=== PATIENT | male | born 1945 | race Caucasian/White ===

== ENCOUNTER → 2019-11-21 10:15 | Outpatient (BNVA) | payer MEDICARE, SELFPAY | PROVIDERS: Family Provider Family Medicine; PCP Family Medicine; Visit Provider Family Medicine | DX: E11.40 Type 2 diabetes mellitus with diabetic neuropathy, unspecified (principal) | CPT/HCPCS: 82607; 83036; 85025 ==

== ENCOUNTER → 2020-01-13 15:23 | Outpatient (BNVA) | payer MEDICARE, SELFPAY | PROVIDERS: Family Provider Family Medicine; PCP Family Medicine; Visit Provider Family Medicine | DX: E11.9 Type 2 diabetes mellitus without complications (principal) | CPT/HCPCS: 36416; 83036 ==

== ENCOUNTER 2020-08-13 14:33 | Outpatient (CLI) | payer MEDICARE, SELFPAY ==
--- NOTE | 2020-08-13 15:12 | XR_ITS ---
WS: [id number] Exam: XR lumbar spine 2-3V* [id number] Date/Time of Exam: 08/13/2020 3:12 PM Reason For Exam: pain No acute fracture or dislocation. There is spondylosis. Degenerative vacuum disks noted at L4-5 and L 5-S1. Facet DJD at all levels. DJD of the SI joints. Osteopenia. XR/XR lumbar spine 2-3V* [id number] IMPRESSION: 1. No fracture or malalignment. 2. Degenerative changes as above.
== END 2020-08-13 14:34 | disposition home or self-care (01) ==
LOC: RAD 14:37
PROVIDERS: Family Provider Family Medicine; PCP Family Medicine; Visit Provider Family Medicine
DX: M54.5 Low back pain (principal)
CPT/HCPCS: 72100

== ENCOUNTER 2020-08-28 12:51 | Outpatient (CLI) | payer MEDICARE, SELFPAY ==
--- NOTE | 2020-08-28 13:09 | MR_ITS ---
WS: [id number] MRI LUMBAR SPINE WITH CONTRAST TECHNIQUE: Sagittal T1, T2 and STIR imaging. Axial T1 and T2 imaging. Post gadolinium imaging was obt ained. CLINICAL INFORMATION: back pain COMPARISON: MRI FINDINGS: Mild lumbar curve. No acute compression. No high-grade stenosis stenosis. Right L4-5 hemilaminectomy appears new from previous. New prominent L3-4 central disc herniation. L1-L2: Normal. L2-L3: No significant disc bulging. Mild facet arthropathy. Spinal canal and foramen are patent. L3-L4: Mild disc bulging with a prominent central disc protrusion is new from previous. Moderate cent ral canal stenosis. Impingement on the traversing L4 nerve roots bilaterally. Mild left and no signif icant right foraminal narrowing. Moderate facet arthropathy. L4-L5: Right L4-5 hemilaminectomy appears new from previous. Mild disc osteophyte ridging with slight effacement of ventral thecal sac. Slight impingement traversing right L5 nerve root. Mild right and no significant left foraminal narrowing. Moderate facet arthropathy ligamentum flavum hypertrophy. L5-S1: Mild disc bulging with osteophytic ridging. Slight effacement of ventral thecal sac. Moderate to severe right and mild left foraminal narrowing. Encroachment traversing S1 nerve roots without sig nificant impingement. Visualized pelvic bony structures: Normal. Paravertebral soft tissues: Normal. Prior postoperative changes anterior cervical fusion C5-C7. MR/MR lumbar spine wo/w con [id number] IMPRESSION: 1. Mild lumbar curve. No acute compression. 2. New prominent central disc protrusion L3-4 with moderate central canal sten osis and impingement traversing L4 nerve roots bilaterally. 3. Right eccentric disc osteophyte complex L5-S1 with moderate to severe right L5-S1 foraminal narrowing. 4. Right L4-5 laminectomy appears new from previous. Residual narrowing of the right L4-5 subarticular recess with disc osteophytic ridging. Mild right L4-5 foraminal narrowing. 5. Moderate facet arthropathy L3-L5.
== END 2020-08-28 12:52 | disposition home or self-care (01) ==
LOC: RADSHAW 13:01
PROVIDERS: PCP Family Medicine; Visit Provider Family Medicine
DX: M47.816 Spondylosis without myelopathy or radiculopathy, lumbar region (principal); M96.1 Postlaminectomy syndrome, not elsewhere classified; M25.78 Osteophyte, vertebrae; M51.26 Other intervertebral disc displacement, lumbar region
CPT/HCPCS: 72158; A9579

== ENCOUNTER → 2020-11-16 10:54 | Outpatient (BNVA) | payer MEDICARE, SELFPAY | PROVIDERS: PCP Family Medicine; Referring Provider Orthopaedic Surgery; Visit Provider Anesthesiology Pain Medicine | DX: M54.9 Dorsalgia, unspecified (principal); M54.16 Radiculopathy, lumbar region; M51.36 Other intervertebral disc degeneration, lumbar region | CPT/HCPCS: 99205 ==

== ENCOUNTER → 2020-11-20 14:00 | Outpatient (BNVA) | payer MEDICARE, SELFPAY | PROVIDERS: PCP Family Medicine; Visit Provider Nurse Practitioner Family | DX: R50.9 Fever, unspecified (principal); R19.7 Diarrhea, unspecified | CPT/HCPCS: 87635 ==

== ENCOUNTER → 2020-12-07 12:44 | Outpatient (BNVA) | payer MEDICARE, SELFPAY | PROVIDERS: PCP Family Medicine; Visit Provider Anesthesiology Pain Medicine | DX: M54.16 Radiculopathy, lumbar region (principal); M54.9 Dorsalgia, unspecified | CPT/HCPCS: 64483; 64484; J1100; J3490 ==

== ENCOUNTER → 2020-12-28 13:29 | Outpatient (BNVA) | payer MEDICARE, SELFPAY | PROVIDERS: PCP Family Medicine; Visit Provider Anesthesiology Pain Medicine | DX: M54.9 Dorsalgia, unspecified (principal); M54.16 Radiculopathy, lumbar region; M51.36 Other intervertebral disc degeneration, lumbar region | CPT/HCPCS: 99214 ==

== ENCOUNTER → 2021-01-07 12:36 | Outpatient (BNVA) | payer MEDICARE, SELFPAY | PROVIDERS: PCP Family Medicine; Visit Provider Anesthesiology Pain Medicine | DX: M54.16 Radiculopathy, lumbar region (principal); M54.9 Dorsalgia, unspecified | CPT/HCPCS: 64483; 64484; J1040; J3490 ==

== ENCOUNTER → 2021-01-21 10:33 | Outpatient (BNVA) | payer MEDICARE, SELFPAY | PROVIDERS: PCP Family Medicine; Visit Provider Anesthesiology Pain Medicine | DX: M79.18 Myalgia, other site (principal); M54.9 Dorsalgia, unspecified; M54.16 Radiculopathy, lumbar region; M51.36 Other intervertebral disc degeneration, lumbar region | CPT/HCPCS: 20553; 99214; J1030; J3490 ==

== ENCOUNTER → 2021-01-29 12:41 | Outpatient (BNVA) | payer MEDICARE, SELFPAY | PROVIDERS: PCP Family Medicine; Visit Provider Anesthesiology Pain Medicine | DX: M79.18 Myalgia, other site (principal); M54.9 Dorsalgia, unspecified | CPT/HCPCS: 20553; J1030; J3490 ==

== ENCOUNTER → 2021-02-18 10:36 | Outpatient (BNVA) | payer MEDICARE, SELFPAY | PROVIDERS: PCP Family Medicine; Visit Provider Anesthesiology Pain Medicine | DX: M54.9 Dorsalgia, unspecified (principal); M54.16 Radiculopathy, lumbar region; M51.36 Other intervertebral disc degeneration, lumbar region | CPT/HCPCS: 99214 ==

== ENCOUNTER → 2021-02-25 13:50 | Outpatient (BNVA) | payer MEDICARE, SELFPAY | PROVIDERS: PCP Family Medicine; Visit Provider Anesthesiology Pain Medicine | DX: M47.816 Spondylosis without myelopathy or radiculopathy, lumbar region (principal); M54.9 Dorsalgia, unspecified | CPT/HCPCS: 64493; 64494; 64495; J3490 ==

== ENCOUNTER → 2021-03-15 10:50 | Outpatient (BNVA) | payer MEDICARE, SELFPAY | PROVIDERS: PCP Family Medicine; Visit Provider Anesthesiology Pain Medicine | DX: M54.9 Dorsalgia, unspecified (principal); M54.16 Radiculopathy, lumbar region; M51.36 Other intervertebral disc degeneration, lumbar region; M79.604 Pain in right leg; M79.605 Pain in left leg; Z87.891 Personal history of nicotine dependence | CPT/HCPCS: 99214 ==

== ENCOUNTER → 2021-03-26 14:24 | Outpatient (BNVA) | payer MEDICARE, SELFPAY | PROVIDERS: PCP Family Medicine; Visit Provider Anesthesiology Pain Medicine | DX: M47.816 Spondylosis without myelopathy or radiculopathy, lumbar region (principal); M54.9 Dorsalgia, unspecified | CPT/HCPCS: 64493; 64494; 64495; J3490 ==

== ENCOUNTER → 2021-04-11 09:35 | Outpatient (BNVA) | payer OTHER, SELFPAY | PROVIDERS: PCP Family Medicine; Visit Provider Anesthesiology Pain Medicine | DX: M54.9 Dorsalgia, unspecified (principal); M54.16 Radiculopathy, lumbar region; M51.36 Other intervertebral disc degeneration, lumbar region; Z87.891 Personal history of nicotine dependence | CPT/HCPCS: 99214 ==

== ENCOUNTER → 2021-04-15 13:33 | Outpatient (BNVA) | payer OTHER, SELFPAY | PROVIDERS: PCP Family Medicine; Visit Provider Anesthesiology Pain Medicine | DX: M47.816 Spondylosis without myelopathy or radiculopathy, lumbar region (principal); M54.9 Dorsalgia, unspecified | CPT/HCPCS: 64635; 64636; J1030 ==

== ENCOUNTER → 2021-04-29 13:49 | Outpatient (BNVA) | payer OTHER, SELFPAY | PROVIDERS: PCP Family Medicine; Visit Provider Anesthesiology Pain Medicine | DX: M47.816 Spondylosis without myelopathy or radiculopathy, lumbar region (principal); M54.9 Dorsalgia, unspecified; Z87.891 Personal history of nicotine dependence | CPT/HCPCS: 64635; 64636; J1030 ==

== ENCOUNTER → 2021-05-14 14:46 | Outpatient (BNVA) | payer OTHER, SELFPAY | PROVIDERS: PCP Family Medicine; Visit Provider Anesthesiology Pain Medicine | DX: M54.16 Radiculopathy, lumbar region (principal) | CPT/HCPCS: 64483; 64484; J1100; J3490 ==

== ENCOUNTER → 2021-05-29 14:01 | Outpatient (BNVA) | payer OTHER, SELFPAY | PROVIDERS: PCP Family Medicine; Visit Provider Anesthesiology Pain Medicine | DX: M54.16 Radiculopathy, lumbar region (principal); M51.36 Other intervertebral disc degeneration, lumbar region; M79.604 Pain in right leg; M79.605 Pain in left leg | CPT/HCPCS: 99214 ==

== ENCOUNTER → 2021-06-28 11:06 | Outpatient (BNVA) | payer OTHER, SELFPAY | PROVIDERS: PCP Family Medicine; Visit Provider Anesthesiology Pain Medicine | DX: M54.16 Radiculopathy, lumbar region (principal); M51.36 Other intervertebral disc degeneration, lumbar region; M79.604 Pain in right leg; M79.605 Pain in left leg | CPT/HCPCS: 99213 ==

== ENCOUNTER → 2021-07-22 10:03 | Outpatient (BNVA) | payer OTHER, SELFPAY | PROVIDERS: PCP Family Medicine; Visit Provider Orthopaedic Surgery | DX: Z01.818 Encounter for other preprocedural examination (principal); Z20.822 Contact with and (suspected) exposure to COVID-19 | CPT/HCPCS: 87635 ==

== ENCOUNTER 2021-07-26 07:10 | Day surgery (SDC) | payer OTHER, SELFPAY ==
[2021-07-25 15:45] VITALS: BMI 36.2
[2021-07-26] VITALS (7 sets, daily range): BP systolic 104–121; BP diastolic 61–84; PULSE 81–98; RESP 15–18; TEMP 36.2–36.5; O2SAT 90–96
--- NOTE | 2021-07-26 | SCC_ITS ---
Procedure Done: 1. L4/5 laminectomy with partail facetectomy 2. L5/S1 laminectomy with partial facetectomy 22.6 seconds of fluoroscopic guidance, for a cumulative dose of 11.53 mGy, was provided to Dr. Alvares by the radiology department. C-arm images of the lumbar spine were saved for the patient's permanent record. [facility]
--- NOTE | 2021-07-26 | XR_ITS ---
WS: [id number] C-ARM RADIOGRAPHS LUMBAR SPINE; 3 IMAGES HISTORY: MAG PICS COMPARISON: None available. Intraoperative imaging during decompression. Hardware is noted at the L4-5 disc level. XR/XR lumbar spine 1V port [id number] IMPRESSION: Intraoperative imaging during spine decompression.
[2021-07-26] MEDS: sodium chloride 0.9% 1,000 ML 30 ML IV (07:39)
--- NOTE | 2021-07-26 07:57 | ANES.PREANE2 ---
Pre-Anesthetic Assessment Pre-Anesthetic Assessment: Height/Weight: Height 1.8 m Weight 117.934 kg Temp Pulse Resp BP Pulse Ox 97.2 F L 83 17 112/66 94 07/26/21 07:26 07/26/21 07:26 07/26/21 07:26 07/26/21 07:26 07/26/21 07:26 Preop Diagnosis: lumbar stenosis with neurogenic claudication Proposed Procedure: Operation Date: 07/26/21 08:40 Proposed Procedures p Lumbar Spine Decompression L4/5 L5/S1 [id number] M48.061(Not Applicable) - Dillon Alvares, DO Was Beta Lupis taken within 24 hours: N/A Was Clonidine taken within 24 hours: N/A Last intake: Intake Last Liquid Date 07/25/21 Last Liquid Time 18:05 Last Solid Date 07/25/21 Last Solid Time 18:05 Social: Social History: Alcohol (nightly) and Tobacco Exam: Pre-Anes Outpt Exam: alert, oriented x 3 and clear to auscultation bilaterally Airway: Cervical ROM: WNL MP: 3 Dentition: Partials (lower) CV/HEM: CV/HEM: Arrythmia and HTN Metabolic: Metabolic: Morbid obesity Musc/skel: Musc/skel: Lower Back Pain and OA/DJD Anesthetic Plan: ASA status: 3 Anesthesia: General Risk of > 500 ml blood loss (7ml/kg in children): No Meds/Allergies Current Medications: Current Medications Generic Name Dose Route Start Last Admin Trade Name Freq PRN Reason Stop Dose Admin Sodium Chloride 1,000 mls @ 30 ml s/hr 07/26/21 07:30 07/26/21 07:39 Sodium Chloride 0.9% IV 07/27/21 07:29 30 mls/hr .Q24H KORINA Administration PFSH Anesthesia PFSH: Social History Second hand smoke exposure: No Alcohol intake: current Alcohol intake frequency: 3 or more drinks per day History of recent travel: No Data Anesthesia Cardiac Studies: No Data to Display
--- NOTE | 2021-07-26 09:23 | PM.HP ---
Providers/Chief Complaint Primary Care Provider: Mckinley Alcocer MD Chief Complaint: lumbar decompression History of Present Illness Miller Chowdary is a 76 year old male Chief Complaint: low back pain Onset:January Duration: months Characteristics: ache, sharp stabbing, pinch Severity: 5/10 Location: low back Radiating symptoms: none Aggravating factors: twisting, bending, standing Alleviating factors:Laying, sitting provides almost instant relief. Neuro deficits: denies numbness, tingling, weakness, incontinence of bowel/bladder, saddle anesthesia. Prior tx: back surgery to L3/4/5 in [place] January, with relief, 3 injections 2009 with minimal relief Review of Systems Narrative: General ROS: negative for weight changes, fever ENT ROS: negative for nasal congestion, drainage or bleeding, sore throat, dysphagia or ear pain Eyes: PERRL Hematological and Lymphatic ROS: negative for swollen glands or abnormal bleeding Endocrine ROS: negative for polyuria/polydpsia or new changes in weight Respiratory ROS: negative for cough, shortness of breath, or wheezing Cardiovascular ROS: negative for chest pain or dyspnea on exertion Gastrointestinal ROS: negative for reflux, abdominal pain, change in bowel habits, or black or bloody stools Musculoskeletal ROS: negative for back pain, neck pain, or joint pain or swelling except for current problem Neurological ROS: negative for TIA or stoke symptoms Skin: no rashes Medications/Allergies Home Medications Medication Instructions Recorded Confirmed Last Taken Type carvedilol 12.5 mg tablet 12.5 mg PO Q12H tab 04/04/20 07/26/21 07/26/21 05:00 History omeprazole 40 mg capsule,delayed 40 mg PO DAILY PRN #90 cap 11/09/20 07/26/21 07/26/21 05:00 Rx release apixaban 5 mg tablet 5 mg PO BID #30 tab 11/12/20 07/25/21 07/23/21 Rx ezetimibe 10 mg tablet See Rx Instructions .ROUTE 03/06/21 07/26/21 07/25/21 08:00 Rx .COMPLEX #90 tab furosemide 20 mg tablet See Rx Instructions .ROUTE 03/06/21 07/26/21 07/25/21 08:00 Rx .COMPLEX #180 tab potassium chloride 20 mEq See Rx Instructions .ROUTE 03/06/21 07/26/21 07/25/21 08:00 Rx tablet,extended release(part/cryst) .COMPLEX #90 tab olmesartan 20 mg tablet 20 mg PO DAILY 06/25/21 07/26/21 07/25/21 08:00 History Allergies Allergy/AdvReac Type Severity Reaction Status Date / Time digoxin Allergy Severe ADR/ALGY-Hy Verified 07/26/21 07:24 potension PFSH Acute PFSH: Social History Second hand smoke exposure: No Alcohol intake: current Alcohol intake frequency: 3 or more drinks per day History of recent travel: No Vitals/I&O/Wt Last Vital Signs Temp 97.2 F L 07/26/21 07:26 Pulse 83 07/26/21 07:26 Resp 17 07/26/21 07:26 BP 112/66 07/26/21 07:26 Pulse Ox 94 07/26/21 07:26 Weight last 48 hrs Weight 260 lb Physical Exam Narrative: EXAM NARRATIVE: CONSTITUTIONAL: The patient is a normal appearing [] in no apparent distress. GENERAL: Patient in no acute distress. CARDIAC: Regular rate and rhythm. CHEST: Normal inspiratory effort, normal respiratory rate. ABDOMEN: Soft and nontender. SKIN: Clear, warm and intact. NEURO?PSYCH: The patient is alert and oriented to person, place and time. Sensorv /SILT Motor StrengthShoulder abduction C5 5/5Wrist extension C6 5/5Elbow extension C7 5/5Hand Office Copy Selector C8 5/5Finger abduction T15/5 Radial/ Ulnar/ Median n intact LowerSensory (SILT)Motor StrengthHin flexion L2/3Ant/inner thigh 5/5Hip adduction L2/3 5/5Knee extension L4 Lat thigh, 5/5Toe dorsiflexion L5 5/5Ankle dorsiflexion L5/ T46Kpomowo flexion S1 5/5 DTRBleeps 2+Triceps 2+Brachioradialis 2+Patellar 2+Achilles 2+ MUSCULOSKELETAL: [] UPPEREXTREMITIES: The patient had full active ROM in fingers, wrist, elbow, and shoulder. The patient demonstrated ability to fully flex/extend/abduct/adduct fingers, make ok sign, cross 2nd/3rd digits, extend 1st digit fully.. Radial pulse 2+, CR<2 seconds. LOWER EXTREMITIES: Pt has full, active ROM of toes, ankle, knee, and hip. Dorsalis pedis/posterior tibialis pulses 2+, CR<2 seconds. SPINE: Skin warm, dry, intact. A&P Assessment and plan (1) Lumbar stenosis without neurogenic claudication: MIS decompression L4/5 And L5/S1 Status: Acute Attestations Medical Necessity Statement*: failed conservative tx Coding Level of Care Code Acute Floor Covering Installer for [facility] Fwd Diagnoses Lumbar stenosis without neurogenic claudication M48.061
--- NOTE | 2021-07-26 11:01 | P.OP_ITS ---
Operative Report Date of procedure: July 26, 2021 Pre-op Diagnosis: lumbar stenosis with neurogenic claudication Post-op diagnosis: same Procedure Done: 1. L4/5 laminectomy with partail facetectomy 2. L5/S1 laminectomy with partial facetectomy Surgeon: Dillon Alvares Risk Prevention Engineer: Bobby Munguia Risk Prevention Engineer: The surgical nurse, LURDES Newman was needed for his expertise under the microscope. He was important and necessary throughout the procedure to complete in a safe and timely manner. He assisted with patient positioning prepping and draping tissue retraction suctioning of the operative field protection of the dural sac and tissue closure Anesthesia: General Estimated blood loss (mL): 10 Condition: stable Disposition: PACU Procedure: Patient is brought to the operative suite. After undergoing anesthesia they are placed in the prone position. All areas of impingement are well padded. Patient is then prepped and draped in the normal sterile fashion. A skin incision is made over the L4/5 level. This is confirmed under c-arm guidance. A series of dilators are passed and the tubular retractor is docked on the L4 lamina. A bovie is used to clear the soft tissue off the lamina and the L 4/5 facet joint. A high speed josselyn is then used to perform the laminectomy and take down the medial aspect of the L 4/5 facet joint. A kerrison rongeure was then used to take down the remaining lamina and smooth the edge of the laminectomy up to the point where the ligamentum flavum attaches. Attention was then brought to the medial aspect of the facet joint. The remaining medial aspect of the superior and inferior aspect of the facet joint were taken down with the kerrison from the pedicle of L4 to L 5. The facet joint had significant hypertrophy. Attention was then brought to the Ligamentum Flavum. The ligament was taken down from the lamina of L4 to L5 and out medially to the remaining facet joint. The ligament was thick. The dura was then exposed. The dura was in good repair. The L4 nerve was then traced with a curette out the L4/5 foramen and found to be adequately decompressed. The L5 nerve was traced with a curette around the L5 pedicle. The lateral recess was opened with a kerrison helping to further decompress the L5 nerve. Wound is then irrigated copiously with saline and surgiflo is used to stop any bleeding. The tubular retractor is removed and A skin incision is made over the L5/S1 level. This is confirmed under c-arm guidance. A series of dilators are passed and the tubular retractor is docked on the L5 lamina. A bovie is used to clear the soft tissue off the lamina and the L 5/S1 facet joint. A high speed josselyn is then used to perform the laminectomy and take down the medial aspect of the L 5/S1 facet joint. A kerrison rongeure was then used to take down the remaining lamina and smooth the edge of the laminectomy up to the point where the ligamentum flavum attaches. Attention was then brought to the medial aspect of the facet joint. The remaining medial aspect of the superior and inferior aspect of the facet joint were taken down with the kerrison from the pedicle of L5 to S1. The facet joint had significant hypertrophy. Attention was then brought to the Ligamentum Flavum. The ligament was taken down from the lamina of L5 to S1 and out medially to the remaining facet joint. The ligament was thick. The dura was then exposed. The dura was in good repair. The L5 nerve was then traced with a curette out the L5/S1 foramen and found to be adequately decompressed. The S1 nerve was traced with a curette around the S1 pedicle. The lateral recess was opened with a kerrison helping to further decompress the S1 nerve. Wound is then irrigated copiously with saline and surgiflo is used to stop any bleeding. The tubular retractor is removed and the wound is closed with vicryl and monocryl suture. Glue is then used to protect the wound. A sterile dressing is then placed. Patient was then placed in the supine position and transferred to the PACU in stable condition.
--- NOTE | 2021-07-26 11:04 | P.PCN_ITS ---
PACU note PACU note: VSS, Good respiratory effort, report to RELATIONS SPECIALIST Post-Anesthesia Exam: awake
--- NOTE | 2021-07-26 11:04 | PM.PACU ---
PACU note PACU note: VSS, Good respiratory effort, report to LAYOUT DESIGNER Post-Anesthesia Exam: awake
--- NOTE | 2021-07-26 13:21 | ANE.PACU2 ---
Inpatient post-anesthesia follow up: Airway intact: Yes Vital signs: Temperature 97.2 F Pulse Rate 83 Respiratory Rate 18 Blood Pressure 117/84 Pulse Oximetry 96 Oxygen Delivery Me thod Room Air Oxygen Flow Rate Fraction of Inspir ed Oxygen Hydration adequate: Yes Nausea and vomiting: No Pain level: 3 Mental status: Baseline
== END 2021-07-26 11:54 | disposition home or self-care (01) ==
PROVIDERS: PCP Family Medicine; Visit Provider Orthopaedic Surgery
PROC: (CPT 63005; principal; 2021-07-26 08:40)
DX: M48.062 Spinal stenosis, lumbar region with neurogenic claudication (principal); I10 Essential (primary) hypertension; E66.01 Morbid (severe) obesity due to excess calories; Z68.36 Body mass index [BMI] 36.0-36.9, adult
CPT/HCPCS: 63047; 63048; 72020; 76000; J0330; J0690; J1100; J2370; J2405; J2704; J3010; J3490; J7030

== ENCOUNTER 2021-10-23 10:06 | Outpatient (RCR) | payer OTHER, SELFPAY | END 2021-11-18 23:59 | disposition home or self-care (01) | LOC: GPT 10:06 | PROVIDERS: PCP Family Medicine; Referring Provider Orthopaedic Surgery; Visit Provider Orthopaedic Surgery | DX: Z47.89 Encounter for other orthopedic aftercare (principal) | CPT/HCPCS: 97110; 97140; 97162; G0283 ==

== ENCOUNTER 2021-11-19 06:00 | Outpatient (RCR) | payer OTHER, SELFPAY | END 2021-12-16 23:59 | disposition home or self-care (01) | LOC: GPT 06:00 | PROVIDERS: PCP Family Medicine; Referring Provider Orthopaedic Surgery; Visit Provider Orthopaedic Surgery | DX: Z47.89 Encounter for other orthopedic aftercare (principal) | CPT/HCPCS: 97110; 97140; G0283 ==

== ENCOUNTER 2021-12-17 06:00 | Outpatient (RCR) | payer OTHER, SELFPAY | END 2022-01-09 23:59 | disposition home or self-care (01) | LOC: GPT 06:00 | PROVIDERS: PCP Family Medicine; Referring Provider Orthopaedic Surgery; Visit Provider Orthopaedic Surgery | DX: Z47.89 Encounter for other orthopedic aftercare (principal); M48.061 Spinal stenosis, lumbar region without neurogenic claudication | CPT/HCPCS: 97110; 97140; G0283 ==

== ENCOUNTER → 2022-01-28 09:44 | Outpatient (BNVA) | payer OTHER, SELFPAY | PROVIDERS: PCP Family Medicine; Visit Provider Orthopaedic Surgery | DX: M54.50 Low back pain, unspecified (principal) | CPT/HCPCS: 99213 ==

== ENCOUNTER 2022-03-14 12:57 | Outpatient (CLI) | payer OTHER, SELFPAY ==
--- NOTE | 2022-03-14 13:00 | MR_ITS ---
WS: [id number] MRI LUMBAR SPINE WITH AND WITHOUT CONTRAST. HISTORY: Chronic back pain. Prior lumbar spine surgery 2019 and 2020. COMPARISON: None available. TECHNIQUE: Sagittal and axial multisequence imaging is submitted. Sagittal and axial T1 fat sat seque nces post-MultiHance 20 cc IV. L5 retrolisthesis by 3 mm. Otherwise the alignment is normal. No fracture or marrow edema. Very minim al disc desiccation at L5-S1. No marrow edema. Conus terminates normally at L1-2 disc level. Mild annular disc bulging. No stenosis. L1-L2: Mild facet and ligamentum flavum disease. L2-L3: Mild ligamentum flavum hypertrophy. L3-L4: Mild annular disc bulging and osteophytic ridging. Small central and LEFT foraminal disc protr usions. Mild ligamentum flavum hypertrophy and facet arthritis. Mild central and LEFT foraminal steno sis. Mild subarticular recess narrowing. L4-L5: Moderate annular disc bulging and osteophytic ridging. Moderate bilateral facet joint arthriti s. Ligamentum flavum encroaches into the central canal. Fluid in the LEFT facet joint. There is a sma ll disc protrusion in the LEFT foramen also. Small LEFT hemilaminectomy defect. There may be remote small hemilaminectomy defect on the RIGHT also. Moderate bilateral subarticular recess encroachment, greatest on the RIGHT. There is also at least moderate central and mild foraminal stenosis. L5-S1: Diffuse annular disc bulging, central disc protrusion and osteophytic ridging with facet and l igamentum flavum disease. Small LEFT hemilaminectomy defect. Central and bilateral subarticular reces s and foraminal stenosis is moderate due to combination of osteophyte and disc and ligamentum flavum disease. There is most significant encroachment upon the S1 nerve roots bilaterally. No discitis or osteomyelitis. MR/MR lumbar spine wo/w con [id number] IMPRESSION: 1. No discitis or osteomyelitis. 2. Prior LEFT hemilaminectomy defects at L4-5 and L5-S1. Suspect there may be remote small RIGHT hemilaminectomy defect at L4-5 also. 3. Small central LEFT foraminal disc protrusions at L3-4 causing mild stenosis . Mild encroachment upon the L4 nerve roots. 4. Moderate bilateral subarticular recess encroachment at L4-5 greatest on the RIGHT with moderate central and mild foraminal stenosis. 5. Moderate central, bilateral subarticular recess and foraminal stenosis at L 5-S1 with most significant encroachment upon the S1 nerve roots.
[2022-03-14] MEDS: gadobenate dimeglumine 20 mL vial IV (14:00)
== END 2022-03-14 12:58 | disposition home or self-care (01) ==
PROVIDERS: PCP Family Medicine; Visit Provider Orthopaedic Surgery
DX: M51.36 Other intervertebral disc degeneration, lumbar region (principal)
CPT/HCPCS: 72158

== ENCOUNTER → 2022-05-27 14:25 | Outpatient (BNVA) | payer OTHER, SELFPAY | PROVIDERS: PCP Family Medicine; Visit Provider Orthopaedic Surgery | DX: M54.9 Dorsalgia, unspecified (principal) | CPT/HCPCS: 85025; 99214 ==

== ENCOUNTER → 2022-06-03 10:47 | Outpatient (BNVA) | payer OTHER, MEDICARE, SELFPAY | PROVIDERS: PCP Family Medicine; Visit Provider Anesthesiology Pain Medicine | DX: M54.16 Radiculopathy, lumbar region (principal); M51.36 Other intervertebral disc degeneration, lumbar region; M25.511 Pain in right shoulder; M25.512 Pain in left shoulder; M79.604 Pain in right leg; M79.605 Pain in left leg; M19.019 Primary osteoarthritis, unspecified shoulder; Z87.891 Personal history of nicotine dependence | CPT/HCPCS: 73030; 99214 ==

== ENCOUNTER → 2022-12-02 14:15 | Outpatient (BNVA) | payer OTHER, SELFPAY | PROVIDERS: PCP Family Medicine; Visit Provider Anesthesiology Pain Medicine | DX: M25.511 Pain in right shoulder (principal); M25.512 Pain in left shoulder; M54.9 Dorsalgia, unspecified | CPT/HCPCS: 20610 ==